=== PATIENT | male | born 1965 | race Two or more races ===

== ENCOUNTER 2024-07-13 11:35 | Emergency (ER) | payer OTHER ==
[~2024-07-13] VITALS: Ht 188 cm; Wt 100.7 kg
[2024-07-13] MEDS ORDERED: LIDOCAINE HCL 1% 10ML VIAL IJ ONE (15:30)
[2024-07-13] MEDS ORDERED: LIDOCAINE HCL 1% 10ML VIAL ONE (15:32)
[2024-07-13] MEDS ORDERED: TETANUS DIPHTHERIA TOX. ADSOR 5 ML VIAL IM ONE (15:42)
[2024-07-13] MEDS ORDERED: TETANUS & DIPHTHERIA TOX,ADULT 0.5 ML VIAL IM ONE (15:45)
== END 2024-07-13 16:07 | disposition home or self-care (01) ==
LOC: ER 11:37
DX: S01.81XA Laceration without foreign body of other part of head, initial encounter (principal); W18.39XA Other fall on same level, initial encounter; Y93.89 Activity, other specified; Y92.89 Other specified places as the place of occurrence of the external cause; Y99.9 Unspecified external cause status; Z88.8 Allergy status to other drugs, medicaments and biological substances